=== PATIENT | female | born 1945 | race Two or more races ===

== ENCOUNTER 2019-03-15 14:38 | Outpatient (CLI) | payer OTHER ==
[~2019-03-15 14:38] MED LIST: CRESTOR5 MG; LISINOPRIL2.5 MG
== END 2019-03-15 14:54 | disposition home or self-care (01) ==
LOC: RAD 501 14:38
DX: I10 Essential (primary) hypertension (principal)

== ENCOUNTER 2022-02-13 12:37 | Outpatient (CLI) | payer OTHER | END 2022-02-14 12:02 | disposition home or self-care (01) | LOC: RAD 12:37 | PROVIDERS: ATTEND Physical Medicine & Rehabilitation | DX: M41.9 Scoliosis, unspecified (principal); M25.551 Pain in right hip; M25.552 Pain in left hip; R22.1 Localized swelling, mass and lump, neck ==

== ENCOUNTER 2022-05-26 15:17 | Outpatient (CLI) | payer OTHER | END 2022-05-26 15:27 | disposition home or self-care (01) | LOC: LAB 15:17 | PROVIDERS: ATTEND Otolaryngology Otology & Neurotology | DX: D44.0 Neoplasm of uncertain behavior of thyroid gland (principal) ==

== ENCOUNTER → 2022-06-19 | Outpatient (CLI) | payer OTHER | END | disposition home or self-care (01) | LOC: SONOGRAMA 14:02 | PROVIDERS: ATTEND Pathology Anatomic Pathology & Clinical Pathology | DX: D37.030 Neoplasm of uncertain behavior of the parotid salivary glands (principal); C80.1 Malignant (primary) neoplasm, unspecified; D11.0 Benign neoplasm of parotid gland ==

== ENCOUNTER 2022-07-02 14:54 | Outpatient (CLI) | payer OTHER | END 2022-07-02 15:01 | disposition home or self-care (01) | LOC: LAB 14:54 | PROVIDERS: ATTEND Radiology Diagnostic Radiology | DX: R10.9 Unspecified abdominal pain (principal) ==

== ENCOUNTER 2022-07-07 08:25 | Outpatient (CLI) | payer OTHER | END 2022-07-07 08:40 | disposition home or self-care (01) | LOC: TOM 08:25 | PROVIDERS: ATTEND Otolaryngology Otology & Neurotology | DX: D44.0 Neoplasm of uncertain behavior of thyroid gland (principal) | CPT/HCPCS: 70491; Q9965 ==

== ENCOUNTER 2024-08-29 10:35 | Outpatient (CLI) | payer OTHER ==
[~2024-08-29 10:35] MED LIST changes: +GABAPENTIN600 MG PO; +IRON325 MG PO; +NEURONTIN600 M1 PO; +OSEL75CA PO; +PEPCID AC20 MG PO; +ROSUVASTATIN CA10 MG PO; +STOOL SOFTENER50 MG PO; +XELJANZ XR11 MG PO; +ZESTRIL10 M1 PO
== END 2024-08-29 10:37 | disposition home or self-care (01) ==
LOC: SONOGRAMA 10:35
PROVIDERS: ATTEND Internal Medicine
DX: E04.1 Nontoxic single thyroid nodule (principal); I11.9 Hypertensive heart disease without heart failure; D11.0 Benign neoplasm of parotid gland; M81.0 Age-related osteoporosis without current pathological fracture; M06.89 Other specified rheumatoid arthritis, multiple sites; M62.84 Sarcopenia

== ENCOUNTER 2024-10-20 14:41 | Outpatient (CLI) | payer OTHER | END 2024-10-20 14:42 | disposition home or self-care (01) | LOC: SONOGRAMA 14:41 | PROVIDERS: ATTEND Pathology Anatomic Pathology & Clinical Pathology | DX: K11.8 Other diseases of salivary glands (principal); D11.0 Benign neoplasm of parotid gland ==

== ENCOUNTER 2025-08-30 11:29 | Emergency (ER) | payer OTHER ==
[~2025-08-30] VITALS: Ht 157.5 cm; Wt 47.6 kg
[2025-08-30] MEDS ORDERED: FAMOTIDINE/PF 20 MG/2 ML VIAL IV ONE (13:30)
[2025-08-30] MEDS ORDERED: CEFTRIAXONE SODIUM 1,000 MG VIAL IM ONE (13:30)
[2025-08-30] MEDS ORDERED: ACETAMINOPHEN 500 MG GEL..CAP PO ONE (13:30)
[2025-08-30 14:16] LABS: BASO % 0.9 % (0.1-1.2); EOS # 0.15 (0.04-0.54); EOS % 4.7 % (0.7-7.0); LYMPH # 2.00 (1.18-3.74); LYMPH % 62.1 % (19.3-53.1); MEAN PLATELET VOLUME 10.50 fl (9.4-12.4); MONO # 1.01 (0.24-0.82); NEUT # 0.03 (1.56-6.13); NEUT % 0.9 % (34.0-71.1); RED CELL DISTRIBUTION WIDTH 14.5 % (11.6-14.4)
[2025-08-30 14:48] LABS: ERYTHROCYTE SEDIMENTATION RATE > 130 mm/hr (0-30)
[2025-08-30 15:00] LABS: ALT/SGPT 14.0 U/L (12-78); AST/SGOT 13.0 U/L (15-37); BILIRUBIN TOTAL 0.28 mg/dL (0.3-1.2); BUN CREA RATIO 27.0 (7.0-25.0); CREATININE SERUM 0.74 mg/dL (0.55-1.02); GFR 75.9; GLOBULINA 4.8 G/DL (2.4-3.5); GLUCOSE FASTING 89.0 mg/dL (65-100); OSMOLALITY SERUM 285.0 MOSM/KG (275-295)
[2025-08-30 15:46] LABS: BAND MAN 0.0 %; BASOPHIL MAN 0.0 %; EOSINOPHIL MAN 5.0 %; LYMPHOCYTE MAN 41.0 %; METAMYELOCYTE 4.0 %; MONO % 31.4 % (4.7-12.5); MONOCYTE MAN 17.0 %; NEUTROPHILS MAN 1.0 %
[2025-08-30] MEDS ORDERED: ABATINEX680 MG PO (15:58)
[2025-08-30] MEDS ORDERED: AMOX-CLAV 875-1 EACH PO (15:58)
[2025-08-30] MEDS ORDERED: PEPCID AC20 MG PO (15:58)
== END 2025-08-30 16:08 | disposition home or self-care (01) ==
LOC: ER 11:29
PROVIDERS: Student in an Organized Health Care Education/Training Program
DX: L98.419 Non-pressure chronic ulcer of buttock with unspecified severity (principal)
CPT/HCPCS: 36415; 71111; 72100; 96365; 96372; 99283; J0696; J3490